=== PATIENT | female | born 1985 | race Caucasian/White ===

== ENCOUNTER 2018-11-05 09:53 | Emergency (ER) | payer MEDICAID ==
[~2018-11-05] VITALS: Ht 160 cm; Wt 86.2 kg
[2018-11-05 09:57] VITALS: Ht 160 cm; Wt 86.2 kg
[2018-11-05 11:48] LABS: BASOPHIL % 0.9 % (0-2); PLATELET COUNT 243 x10^3mcL (130-400); RED CELL DISTRIBUTION WIDTH 14.3 % (11.5-14.5)
[2018-11-05 12:07] LABS: CALCIUM 8.3 mg/dL (8.5-10.1); CARBON DIOXIDE 23.2 mmol/L (21-32); CHLORIDE SERUM 109 mmol/L (98-107); CREATININE SERUM 0.7 mg/dL (0.6-1.0); GFR1 > 60 mL/min; GLUCOSE SERUM 99 mg/dL (74-106); SODIUM SERUM 144 mmol/L (136-145)
[2018-11-05 12:11] LABS: ALBUMIN 3.7 g/dL (3.4-5.0); ALKALINE PHOSPHATASE 102 U/L (46-116); ALT/SGPT 38 U/L (14-59); AST/SGOT 30 U/L (15-37); BILIRUBIN TOTAL 0.11 mg/dL (0.20-1.00); TOTAL PROTEIN, SERUM 7.6 g/dL (6.4-8.2)
[2018-11-05 13:31] VITALS: BP 128/76
== END 2018-11-05 13:31 | disposition home or self-care (01) ==
LOC: ED 09:53
PROVIDERS: Emergency Medicine
DX: R51 Headache (principal); Z98.890 Other specified postprocedural states
CPT/HCPCS: J2765; J3010

== ENCOUNTER 2018-11-21 04:35 | Emergency (ER) | payer MEDICAID ==
[~2018-11-21] VITALS: Ht 160 cm; Wt 82.6 kg
[2018-11-21 05:54] VITALS: BP 114/69
== END 2018-11-21 04:50 | disposition home or self-care (01) ==
LOC: ED 04:35
DX: R51 Headache (principal); F17.210 Nicotine dependence, cigarettes, uncomplicated; G47.00 Insomnia, unspecified; Z98.890 Other specified postprocedural states
CPT/HCPCS: J3010; J8597